=== PATIENT | female | born 1940 | race Caucasian/White ===

== ENCOUNTER → 2016-05-21 | Outpatient (CLI) | payer OTHER | LOC: BHFA 08:30 | PROVIDERS: ATTEND Internal Medicine Cardiovascular Disease | DX: I25.10 Atherosclerotic heart disease of native coronary artery without angina pectoris (principal) | CPT/HCPCS: 78452; 93017; A9500; J2785 ==

== ENCOUNTER → 2016-08-14 | Outpatient (CLI) | payer OTHER | LOC: BHFA 10:45 | PROVIDERS: ATTEND Internal Medicine Cardiovascular Disease | DX: I48.91 Unspecified atrial fibrillation (principal); I25.10 Atherosclerotic heart disease of native coronary artery without angina pectoris ==

== ENCOUNTER → 2016-12-25 | Outpatient (CLI) | payer OTHER | LOC: FIMAGING 08:41 | PROVIDERS: ATTEND Family Medicine | DX: Z03.89 Encounter for observation for other suspected diseases and conditions ruled out (principal) | CPT/HCPCS: G0204 ==

== ENCOUNTER 2017-01-14 19:28 | Emergency (ER) | payer OTHER ==
[2017-01-14 19:40] VITALS: O2SAT 95
--- NOTE | 2017-01-14 20:31 | EDPHY ---
H & P Time Seen by Provider: 01/14/17 20:13 HPI/ROS: CHIEF COMPLAINT: High blood pressure and "feeling weird " HISTORY OF PRESENT ILLNESS: This 76-year-old woman has a history of atrial flutter and is on Xarelto. She presents because this afternoon she started "feeling weird "like she had too much coffee. Initially she said she felt off balance but has not really had any trouble walking, more just "feels jittery. "Like she had "too much coffee. " Patient denies associated headache or confusion or visual trouble. No difficulty with speech and no falling down or vertigo. Patient noticed her blood pressure at home was 168/104, that made her feel more jittery, she presents for evaluation. She is currently taking carvedilol but no other blood pressure medications. REVIEW OF SYSTEMS: Eye: no change in vision ENT: no sore throat Cardiac: no chest pain or syncope Pulmonary: no cough or SOB Abdomen: no vomiting, diarrhea, abdominal pain Musculoskeletal: no back pain or neck pain Skin: no rash Neuro: no headache Constitutional: no fever : no urinary symptoms A comprehensive 10 point review of systems is otherwise negative aside from elements mentioned in the history of present illness. PAST MEDICAL HISTORY: Includes atrial flutter, a hyperlipidemia, thyroid. Pacemaker and coronary stenting. Social history: Here with her General Appearance: Alert and conversant, cooperative. Eyes: No scleral icterus. ENT, Mouth: Normal mucous membranes. Respiratory: Normal respiratory effort, breath sounds equal, lungs are clear to auscultation. Cardiovascular: Regular rate and rhythm. Gastrointestinal: Abdomen is soft and non tender. Neurological: Alert and oriented x3. Normally conversant. Face symmetric, normal movement and sensation in all extremities. She is able to do heel to the toe walking. Negative Romberg. No pronator drift. Normal [id number] bilaterally. Speech is fluent. She does not have truncal ataxia and is not ataxic with her gait. Skin: Warm and dry, no rashes. Musculoskeletal: No peripheral edema and no joint swelling. Normal range of motion of the neck, no meningeal signs. Psychiatric: Not agitated. Emergency Department course/MDM: Patient presents with hypertension but without definite evidence of end-organ damage or hypertensive emergency and history or physical. Plan for noncontrast head CT with her possible neurologic symptoms on Xarelto. EKG, CBC and chemistry. I think it is more likely that she has some other intercurrent illness making her feel a little bit off and that is in turn making her blood pressure go higher. 2125: Negative noncontrast head CT personally interpreted. Reviewed with Sarmad at 2200. Patient is eager to go home. She feels her gait is safe and stable. Normal cerebellar exam here. Will followup with her doctor regarding hypertension this week. Smoking Status: Never smoked Constitutional: Initial Vital Signs Temperature (C) 36.7 C 01/14/17 19:34 Heart Rate 76 01/14/17 19:34 Respiratory Rate 16 01/14/17 19:34 Blood Pressure 170/95 H 01/14/17 19:34 O2 Sat (%) 95 01/14/17 19:34 O2 Delivery Mode Room Air Allergies/Adverse Reactions: celecoxib [From Celebrex] Allergy (Verified 02/02/16 19:58) erythromycin base [From E-Mycin] Allergy (Verified 02/02/16 19:58) Home Medications: Medication Instructions Recorded Cholecalciferol Vit D3 [Vitamin D3 1,000 units PO DAILY@1200 08/31/13 (*)] Herbals/Supplements -Info Only 1 ea PO DAILY 08/31/13 Levothyroxine [Synthroid 75 mcg 75 mcg PO DAILY06 08/31/13 (*)] Lovastatin [Altoprev] 20 mg PO DAILY18 08/31/13 Aspirin [Aspirin 81mg (*)] 81 mg PO DAILY 06/05/15 Carvedilol [Coreg (*)] 3.125 mg PO BIDMEAL #60 tab 06/06/15 Xarelto 01/14/17 Medical Decision Making - Diagnostics EKG Interpretation: 12-lead EKG interpreted by me; official reading is in trace master. My interpretation is atrial fibrillation and ventricular pacing with right axis. Rate 72. Imaging Results: Imaging Impressions Head CT 01/14/17 20:25 Impression: 1. No acute intracranial findings. 2. Diffuse cerebral atrophy, with periventricular and subcortical low attenuation consistent with chronic microvascular ischemic gliosis. Findings discussed with Bakari Garcia M.D., on January 14, 2017 at 2157. Differential Diagnosis: Differential considered including but not limited to hypertensive emergency, intracranial mass or bleed, ischemic or hemorrhagic stroke, metabolic abnormality, pacemaker malfunction. - Data Points Laboratory Results: Laboratory Results 01/14/17 20:33 01/14/17 20:33 01/14/17 01/14/17 20:33 20:33 WBC 5.10 10^3/uL 10^3/uL (3.80-9.50) RBC 4.94 10^6/uL 10^6/uL (4.18-5.33) Hgb 15.4 g/dL g/dL (12.6-16.3) Hct 44.9 % % (38.0-47.0) MCV 90.9 fL fL (81.5-99.8) MCH 31.2 pg pg (27.9-34.1) MCHC 34.3 g/dL g/dL (32.4-36.7) RDW 13.0 % % (11.5-15.2) Plt Count 222 10^3/uL 10^3/uL (150-400) MPV 9.3 fL fL (8.7-11.7) Neut % (Auto) 52.5 % % (39.3-74.2) Lymph % (Auto) 34.3 % % (15.0-45.0) [place] % (Auto) 10.0 % % (4.5-13.0) Eos % (Auto) 2.4 % % (0.6-7.6) Baso % (Auto) 0.6 % % (0.3-1.7) Nucleat RBC Rel Count 0.0 % % (0.0-0.2) Absolute Neuts (auto) 2.68 10^3/uL 10^3/uL (1.70-6.50) Absolute Lymphs (auto) 1.75 10^3/uL 10^3/uL (1.00-3.00) Absolute Monos (auto) 0.51 10^3/uL 10^3/uL (0.30-0.80) Absolute Eos (auto) 0.12 10^3/uL 10^3/uL (0.03-0.40) Absolute Basos (auto) 0.03 10^3/uL 10^3/uL (0.02-0.10) Absolute Nucleated RBC 0.00 10^3/uL 10^3/uL (0-0.01) Immature Gran % 0.2 % % (0.0-1.1) Immature Gran # 0.01 10^3/uL 10^3/uL (0.00-0.10) Sodium 143 mEq/L mEq/L (134-144) Potassium 3.8 mEq/L mEq/L (3.5-5.2) Chloride 106 mEq/L mEq/L (97-110) Carbon Dioxide 25 mEq/l mEq/l (22-31) Anion Gap 12 mEq/L mEq/L (8-16) BUN 14 mg/dL mg/dL (7-23) Creatinine 0.8 mg/dL mg/dL (0.6-1.0) Estimated GFR > 60 Glucose 103 mg/dL H mg/dL (70-100) Calcium 10.0 mg/dL mg/dL (8.5-10.4) Departure - Departure Disposition: Home, Routine, Self-Care Clinical Impression: Hypertension Condition: Good Instructions: Hypertension (ED) Referrals: Jose Junior DO [Primary Care Provider] - As per Instructions
[2017-01-14 20:38] LABS: % IMMATURE GRANULYOCYTES 0.2 % (0.0-1.1); ABSOLUTE IMMATURE GRANULOCYTES 0.01 10^3/uL (0.00-0.10); ADD DIFF? NO; ADD MORPH? NO; ADD SCAN? NO; ATYPICAL LYMPHOCYTE FLAG 10 (0-99); FRAGMENT RBC FLAG 0 (0-99); HEMATOCRIT 44.9 % (38.0-47.0); HEMOGLOBIN 15.4 g/dL (12.6-16.3); LEFT SHIFT FLG 0 (0-99); LIPEMIA HEMOLYSIS FLAG 90 (0-99); MEAN CELL HEMOGLOBIN 31.2 pg (27.9-34.1); MEAN CELL HEMOGLOBIN CONCENTR. 34.3 g/dL (32.4-36.7); MEAN CELL VOLUME 90.9 fL (81.5-99.8); MEAN PLATELET VOLUME 9.3 fL (8.7-11.7); PLATELET CLUMPS FLAG 0 (0-99); PLATELET COUNT 222 10^3/uL (150-400); RED BLOOD CELL COUNT 4.94 10^6/uL (4.18-5.33)
--- NOTE | 2017-01-14 20:42 | CPEKG ---
Heart Rate: 72 RR Interval: 833 QRSD Interval: 98 QT Interval: 436 QTC Interval: 478 QRS [place]: 193 T Wave [place]: 69 EKG Severity - ABNORMAL ECG - EKG Impression: AFIB/FLUT AND V-PACED COMPLEXES EKG Impression: RIGHT AXIS DEVIATION EKG Impression: NONSPECIFIC T ABNORMALITIES, ANT-LAT LEADS EKG Impression: BORDERLINE PROLONGED QT INTERVAL Electronically Signed By: Bakari Garcia 14-Jan-2017 20:45:21
[2017-01-14 21:09] LABS: ANION GAP 12 mEq/L (8-16); CARBON DIOXIDE 25 mEq/l (22-31); CHLORIDE 106 mEq/L (97-110); CREATININE 0.8 mg/dL (0.6-1.0); GLOMERULAR FILTRATION RATE > 60; GLUCOSE 103 mg/dL (70-100); POTASSIUM 3.8 mEq/L (3.5-5.2); SODIUM 143 mEq/L (134-144)
[2017-01-14 22:07] VITALS: BP 153/105; PULSE 70; RESP 16
[2017-01-14 22:08] VITALS: TEMP 96.8
== END 2017-01-14 22:21 | disposition home or self-care (01) ==
DX: I10 Essential (primary) hypertension (principal); Z79.01 Long term (current) use of anticoagulants; Z95.0 Presence of cardiac pacemaker; Z95.5 Presence of coronary angioplasty implant and graft; Z79.82 Long term (current) use of aspirin

== ENCOUNTER 2017-06-18 08:30 | Day surgery (SDC) | payer OTHER ==
[2017-06-18] MEDS ORDERED: NS 1,000 ML IV ONE (08:35)
[2017-06-18] MEDS ORDERED: DIAZEPAM 5 MG TAB PO ONE (08:35)
[2017-06-18] MEDS ORDERED: FAMOTIDINE 20 MG TAB PO ONE (08:35)
[2017-06-18] MEDS ORDERED: diphenhydrAMINE 25 MG CAP PO ONE ×2 (08:35→08:57)
[2017-06-18] MEDS ORDERED: ASPIRIN EC 325 MG TAB PO ONE ×2 (08:35→08:57)
--- NOTE | 2017-06-18 08:52 | CPEKG ---
Heart Rate: 61 RR Interval: 984 QRSD Interval: 162 QT Interval: 468 QTC Interval: 472 QRS [place]: 173 T Wave [place]: -21 EKG Severity - ABNORMAL ECG - EKG Impression: AFIB/FLUT AND V-PACED COMPLEXES EKG Impression: SIMILAR ECG TO DEC 2016 Electronically Signed By: Lior Gutierrez 18-Jun-2017 11:35:07
[2017-06-18] MEDS ORDERED: DIAZEPAM 5 MG TAB ONE (08:57)
[2017-06-18] MEDS ORDERED: FAMOTIDINE 20 MG TAB ONE (08:57)
[2017-06-18 09:12] LABS: PLATELET COUNT 219 10^3/uL (150-400)
[2017-06-18 09:20] LABS: PROTIME(PATIENT) 13.4 SEC (12.0-15.0)
[2017-06-18] MEDS ORDERED: fentaNYL 100 MCG/2 ML INJ ONE (09:37)
[2017-06-18] MEDS ORDERED: LIDOCAINE 1% 300 MG/30 ML SDV ONE (09:37)
[2017-06-18] MEDS ORDERED: MIDAZOLAM 2 MG/2 ML VIAL ONE (09:37)
[2017-06-18] MEDS ORDERED: IOPAMIDOL (ISOVUE-370) 150 ML BTL IV ONE (09:38)
[2017-06-18] MEDS ORDERED: HEPARIN 10,000 UNIT/10 ML MDV (1,000 UNIT/ML) ONE (09:38)
[2017-06-18] MEDS ORDERED: VERAPAMIL 5 MG/2 ML VIAL ONE (09:38)
--- NOTE | 2017-06-18 09:42 | PDHPUP ---
History & Physical Update H&P update statement: This history and physical update is based on an assessment of the patient which was completed after admission or registration (within 24 hours), but prior to the surgery/procedure. H&P update: H&P reviewed & patient examined, no change in patient's condition since H&P completed
--- NOTE | 2017-06-18 09:42 | PDPROPOC ---
Sedation Plan of Care Sedation Plan of Care: vital signs stable, mental status noted, patient educated of risks, benefits, alternatives, patient can tolerate sedation ASA Classification: ASA 2 Planned drugs: fentanyl, midazolam Mallampati Score: Class 1 Mallampati Reference Image: Patient passed 3-3-2 rule?: Yes
[2017-06-18] MEDS ORDERED: NITROGLYCERIN 0.4 MG BTL SL PRN (10:35)
[2017-06-18] MEDS ORDERED: ATROPINE SULFATE 1 MG/10 ML SYR IVP PRN (10:35)
[2017-06-18] MEDS ORDERED: ONDANSETRON 4 MG/2 ML VIAL IVP PRN (10:35)
--- NOTE | 2017-06-18 10:39 | PDDXCAT ---
Diagnostic Cath Note - . Date: 06/18/17 Tissue Specialist: Tez Indication: Class I/II angina, intolerance to med therapy or failure to respond - Procedure Access: right groin Procedure: left heart catheterization, coronary angiography - Materials Left Heart Cath size: 6F Left Heart Cath materials: standard multipack (JL4, JR4, pigtail) - Findings-Left Heart Catheterization LM: Unobstructed LAD: Stent widely patent. No new obstruction LCX: Unobstructed RCA: Anterior takeoff: Unobstructed EDP: 5 mm of mercury LVEF: 60% Wall motion: Normal. Dilated ascending aorta Complications: None Estimated blood loss: <50ml Closure method: manual pressure Assessment: Widely patent site of prior stenting. No new focal stenosis. Preserved LV systolic function with normal filling pressures. Thoracic aortic aneurysm. Plan: Continue aggressive secondary prevention. Patient Problems: Problems Problem Status Onset Atrial fibrillation Acute Sick sinus syndrome Acute Pacemaker Acute Chest pain Acute
== END 2017-06-18 16:45 | disposition home or self-care (01) ==
LOC: FCATH 08:30
PROVIDERS: ATTEND Internal Medicine Interventional Cardiology
PROC: B2111ZZ Fluoroscopy of Multiple Coronary Arteries using Low Osmolar Contrast (ICD-10-PCS; principal; 2017-06-18)
PROC: B2151ZZ Fluoroscopy of Left Heart using Low Osmolar Contrast (ICD-10-PCS; principal; 2017-06-18)
PROC: 4A023N7 Measurement of Cardiac Sampling and Pressure, Left Heart, Percutaneous Approach (ICD-10-PCS; principal; 2017-06-18)
DX: R07.9 Chest pain, unspecified (principal); R06.02 Shortness of breath; I25.10 Atherosclerotic heart disease of native coronary artery without angina pectoris; Z95.5 Presence of coronary angioplasty implant and graft; I71.2 Thoracic aortic aneurysm, without rupture; I10 Essential (primary) hypertension; E78.5 Hyperlipidemia, unspecified; I48.91 Unspecified atrial fibrillation; Z95.0 Presence of cardiac pacemaker
CPT/HCPCS: J1644; J2250; J3010; Q9967

== ENCOUNTER 2017-08-11 09:17 | Emergency (ER) | payer OTHER ==
--- NOTE | 2017-08-11 09:24 | EDPHY ---
H & P Source: Patient Exam Limitations: No limitations - Personal History Tetanus Vaccine Date: within 2 yrs - Medical/Surgical History Hx Asthma: No Hx Chronic Respiratory Disease: No Hx Diabetes: No Hx Cardiac Disease: Yes Hx Renal Disease: No Hx Cirrhosis: No Hx Alcoholism: No Hx HIV/AIDS: No Hx Splenectomy or Spleen Trauma: No Other PMH: PMHx: Atrial flutter, SSS, bradycardia, hyperlipidemia, hypothyroidism, pneumonia. PSHx: T&A at 3yrs of age, bunionectomy, cardiac stent, pacemaker - Social History Smoking Status: Never smoked Time Seen by Provider: 08/11/17 09:23 HPI/ROS: HPI: This is a 76-year-old female who presents with Chief Complaint: Nosebleed Location: right nostril Quality: bleeding Duration: 1 hour prior to arrival Signs and Symptoms: no fever, no nausea, no vomiting, no photophobia, no noise sensitivity, no neck stiffness, no ear pain, no tinnitus, + nasal congestion, + sinus pressure, no weakness, no radiation, no aura Timing:acute Severity: moderate Context: Patient presents with complaints of bleeding from her right nostril. She reports that she has had a cold and was blowing her nose this morning when the bleeding started. Takes Aspirin and Xarelto. Two weeks ago she had a nosebleed that stopped after 2 hr with direct pressure. Modifying Factors: Nose clamp applied at 9:17 a.m. By the triage nurse. Comment: ROS: see HPI Constitutional: No fever, no chills, no weight loss Eyes: No blurred vision Respiratory: No shortness of breath, no cough Cardiovascular: No chest pain, no palpitations Gastrointestinal: No nausea, no vomiting, no diarrhea, no hematemesis, no blood in stool Genitourinary: No dysuria, no blood in urine Extremities: No myalgias, no edema Neurologic: No weakness, no numbness Skin: No rashes, no petechiae Hematologic: No bruising, no bleeding MEDICAL/SURGICAL/SOCIAL HISTORY: PMHx: Atrial flutter, SSS, bradycardia, hyperlipidemia, hypothyroidism, pneumonia PSHx: T&A at 3yrs of age, bunionectomy, cardiac stent, pacemaker Social history: Family history noncontributory. CONSTITUTIONAL: Extremely pleasant elderly white female, awake and alert, no obvious distress HEENT: Atraumatic and normocephalic, PERRL, EOMI. Nares patent; + large clots and bleeding coming from right anterior nose and blood running down the posterior pharynx. Tympanic membranes clear. Oropharynx clear, no exudate and moist pink mucosa. Airway patent. No lymphadenopathy. No meningismus. Cardiovascular: Normal S1/S2, regular rate, regular rhythm, without murmur rub or gallop. PULMONARY/CHEST: Symmetrical and nontender. Clear to auscultation bilaterally. Good air movement. No accessory muscle usage. ABDOMEN: Soft, nondistended, nontender, no rebound, no guarding, no peritoneal signs, no masses or organomegaly. No CVAT. EXTREMITIES: 2/2 pulses, strength 5/5, no deformities, no clubbing, no cyanosis or edema. NEUROLOGICAL: no focal neuro deficits. GCS 15. SKIN: Warm and dry, no erythema. no rash. Good capillary refill. (Megan Hamilton) Constitutional: Initial Vital Signs Heart Rate 82 08/11/17 09:20 Respiratory Rate 18 08/11/17 09:20 Blood Pressure 158/104 H 08/11/17 09:20 O2 Sat (%) 98 08/11/17 09:20 O2 Delivery Mode Room Air Allergies/Adverse Reactions: celecoxib [From Celebrex] Allergy (Intermediate, Verified 08/11/17 09:23) Hives erythromycin base [From E-Mycin] Allergy (Mild, Verified 08/11/17 09:23) GI UPSET Home Medications: Medication Instructions Recorded Cholecalciferol Vit D3 [Vitamin D3 3,000 units PO DAILY 08/31/13 (*)] Herbals/Supplements -Info Only 1 ea PO DAILY 08/31/13 Levothyroxine [Synthroid 75 mcg 75 mcg PO DAILY06 08/31/13 (*)] Aspirin [Aspirin 81mg (*)] 81 mg PO DAILY 06/05/15 Rivaroxaban [Xarelto 10mg (*)] 20 mg PO DAILY 01/14/17 Carvedilol [Coreg (*)] 3.125 mg PO BIDMEAL 06/11/17 Diltiazem HCl [Cartia Xt] 120 mg PO DAILY 06/11/17 Lovastatin 20 mg PO DAILY 06/11/17 Hydrochlorothiazide [HCTZ (*)] 12.5 mg PO 08/11/17 Medical Decision Making Procedures: Procedure: Epistaxis control. After verbal consent was obtained, the patient was not anesthetized. The anterior epistaxis was identified. The patient was treated with TXA soaked nasal packing. Following the procedure the patient was re-examined and the bleeding was well controlled. The patient tolerated the procedure well. The procedure was performed by myself. (Megan Hamilton) ED Course/Re-evaluation: Vital signs reviewed upon arrival. BP 158/104 Patient politely declined laboratory studies she does not believe it to be necessary Nasal packing with TXA used with good hemostasis 1015: Reassessed patient. She had pulled the nasal packing out approximately 3 she reports by accident. Nasal packing with TXA replaced. Patient again pulled approximately 1 inch the packing out. Drinking liquids and ambulating without bleeding reoccurrence. Monitored in the emergency room for 3 hr without return of bleeding. This patient was seen under the supervision of my secondary supervising physician. I evaluated care for this patient independently. Discussed this patient with Dr. Bustamante who did see the patient. (Megan Hamilton) Differential Diagnosis: Differential diagnosis includes but is not limited to digital trauma, dry nasal mucosa, sinusitis, coagulopathy. (Megan Hamilton) Other Provider: 1030: Reassessed patient. She has no active bleeding after TXA nasal packing treatment. Will continue to reassess. (Herminio Bustamante) - Data Points Medications Given: Discontinued Medications Tranexamic Acid (Cyklokapron) 500 mg TP EDNOW ONE Stop: 08/11/17 09:27 Last Admin: 08/11/17 09:35 Dose: Not Given Departure - Departure Disposition: Home, Routine, Self-Care Clinical Impression: Acute anterior epistaxis, Chronic anticoagulation Condition: Good Instructions: Nosebleed (ED), Blood Thinners (ED) Additional Instructions: Please avoid blowing your nose x 1 week. Do not pick your nose x 1 week. Use nasal saline drops or Vaseline as needed for nasal dryness. If Bleeding recurs, apply direct pressure or use nasal clamp. If bleeding does not stop after 1 hour, return to the emergency room for further care. Call ENT on Saturday for follow up on Saturday or Saturday to have nasal packing removed. Follow-Up: Please follow-up as noted above. Follow-up sooner if your condition worsens or if you develop any new problems. Call as soon as possible for an appointment. Be clear when you call for an appointment that this is an Emergency Department follow-up. Contact the Emergency Department if you have trouble arranging follow-up care. Our referrals are not based on your insurance network. When time allows, contact your insurance carrier to verify the referral physician is in your plan. If not, get a referral for an in-network associate. Referrals: Jose Junior DO [Primary Care Provider] - As per Instructions Jordin Ruiz MD [Medical Doctor] - As per Instructions
[2017-08-11] MEDS ORDERED: TRANEXAMIC ACID 1,000 MG/10 ML VIAL TP ONE (09:26)
[2017-08-11] MEDS ORDERED: TRANEXAMIC ACID 1,000 MG/10 ML VIAL ONE (09:27)
[2017-08-11 11:03] VITALS: BP 165/100
== END 2017-08-11 11:02 | disposition home or self-care (01) ==
PROC: 2Y41X5Z Packing of Nasal Region using Packing Material (ICD-10-PCS; principal; 2017-08-11)
DX: R04.0 Epistaxis (principal); Z79.01 Long term (current) use of anticoagulants; Z79.82 Long term (current) use of aspirin; Z95.0 Presence of cardiac pacemaker

== ENCOUNTER 2017-08-11 17:48 | Emergency (ER) | payer OTHER ==
--- NOTE | 2017-08-11 18:22 | EDPHY ---
H & P Smoking Status: Never smoked Time Seen by Provider: 08/11/17 17:55 HPI/ROS: CHIEF COMPLAINT: Epistaxis HISTORY OF PRESENT ILLNESS: 76-year-old female presents to the emergency department with ongoing epistaxis. She was seen in the emergency department earlier today and had nasal packing placed. She continues to bleed around the packing and presents to the emergency department for ongoing bleeding. She states this initially started over 1 week ago. She denies pain in her chest or difficulty breathing. The patient is concerned that she has a sinus infection. She states for last 2 weeks she has had purulent drainage from her nose with facial pressure specially on the right side. She states then she developed the epistaxis over 1 week ago and sort of forgot about her sinus symptoms. She has been treated with antibiotics in the past for sinusitis. She denies cough. Patient has a history of pacemaker and she is on Xarelto. REVIEW OF SYSTEMS: Constitutional: No fever, no chills. Eyes: No double or blurry vision. ENT: Epistaxis. Nasal congestion, rhinorrhea. No sore throat. Respiratory: No cough, no shortness of breath. Cardiac: No chest pain. Gastrointestinal: No abdominal pain, vomiting or diarrhea. Genitourinary: No dysuria. Musculoskeletal: No neck or back pain. Skin: No rashes. Neurological: No headache. (Shannan Mitchell) Past Medical/Surgical History: Pacemaker on Xarelto, atrial flutter, cardiac stent, sick sinus syndrome, bradycardia, hyperlipidemia, hypothyroidism, pneumonia (Shannan Mitchell) Social History: (Shannan Mitchell) Physical Exam: General Appearance: Alert, no distress. 185/99 Eyes: Pupils equal and round. Extraocular motions are all intact. ENT: Mouth: Mucous membranes moist. The patient has Merocel packing noted in her right nostril. There is bleeding noted around the packing. There is no postnasal drip or blood in the posterior pharynx. No bleeding from the left nostril. Respiratory: No wheezing, rhonchi, or rales, lungs are clear to auscultation. Cardiovascular: Regular rate and rhythm. Gastrointestinal: Abdomen is soft and nontender, no masses, no rebound or guarding, bowel sounds normal. Neurological: Alert and oriented x 3, cranial nerves II through XII grossly intact Skin: Warm and dry, no rashes. Musculoskeletal: Nontender to palpate along the cervical, thoracic or lumbar spine. Neck is supple. Extremities: Full range of motion and no peripheral edema. Psychiatric: Patient is oriented X 3, there is no agitation. (Shannan Mitchell) Constitutional: Initial Vital Signs Heart Rate 75 08/11/17 17:50 Respiratory Rate 18 08/11/17 17:50 Blood Pressure 185/99 H 08/11/17 17:50 O2 Sat (%) 96 08/11/17 17:50 O2 Delivery Mode Room Air Allergies/Adverse Reactions: celecoxib [From Celebrex] Allergy (Intermediate, Verified 08/11/17 09:23) Hives erythromycin base [From E-Mycin] Allergy (Mild, Verified 08/11/17 09:23) GI UPSET Home Medications: Medication Instructions Recorded Cholecalciferol Vit D3 [Vitamin D3 3,000 units PO DAILY 08/31/13 (*)] Herbals/Supplements -Info Only 1 ea PO DAILY 08/31/13 Levothyroxine [Synthroid 75 mcg 75 mcg PO DAILY06 08/31/13 (*)] Aspirin [Aspirin 81mg (*)] 81 mg PO DAILY 06/05/15 Rivaroxaban [Xarelto 10mg (*)] 20 mg PO DAILY 01/14/17 Carvedilol [Coreg (*)] 3.125 mg PO BIDMEAL 06/11/17 Diltiazem HCl [Cartia Xt] 120 mg PO DAILY 06/11/17 Lovastatin 20 mg PO DAILY 06/11/17 Amoxicillin/Clavulanate Pot 875 mg PO BID #20 tab 08/11/17 [Augmentin 875 mg tab] Hydrochlorothiazide [HCTZ (*)] 12.5 mg PO 08/11/17 Medical Decision Making ED Course/Re-evaluation: 76-year-old female presents to the emergency department with ongoing epistaxis. The patient is on Xarelto. She is bleeding around the Merocel packing that was placed earlier in the emergency department. Patient's vital signs are stable. The Merocel packing was removed and the patient was able to remove a large clot from her right nose. She had continued ongoing epistaxis. Unable to visualize where bleeding was coming from. There was no bleeding noted in the posterior pharynx. Small amount of 1% lidocaine with epinephrine was placed on a cotton ball in her right nostril. Still unable to visualize active site of bleeding. Patient had a rhino rocket placed. She tolerated this well. No bleeding noted around the rhino rocket currently. No bleeding from the left nostril. No blood in the posterior pharynx. Patient is comfortable being discharged home will follow up with ENT. The patient believes that she has had sinusitis for last 2 weeks. She has a history of sinusitis. The patient will have a rhino rocket left in place in the right nostril for her epistaxis. She was started on Augmentin. She was given ENT referral. (Shannan Mitchell) Differential Diagnosis: Including but not limited to sinusitis, epistaxis, anemia, retained foreign body , hypertensive emergency, hypertensive urgency. (Shannan Mitchell) - Data Points Medications Given: Discontinued Medications Amoxicillin/Clavulanate Potassium (Augmentin 875mg) 875 mg PO EDNOW ONE PRN Reason: Protocol Stop: 08/11/17 18:54 Last Admin: 08/11/17 18:58 Dose: 875 mg Departure - Departure Disposition: Home, Routine, Self-Care Clinical Impression: Epistaxis Sinusitis Qualifiers: Sinusitis location: unspecified location Chronicity: acute Recurrence: non- recurrent Qualified Code(s): J01.90 - Acute sinusitis, unspecified Condition: Good Instructions: Amoxicillin/Clavulanate Potassium (By mouth), Sinusitis (ED), Nosebleed (ED) Additional Instructions: Call to arrange follow-up appointment with Dr. Jordin Ruiz, ENT on-call, this week. Tell them that you were seen in the emergency department twice and you have an anterior-posterior 7.5 cm rhino rocket in her right nostril. Augmentin 875 mg twice daily for 10 days for treatment of your sinusitis. Nasal lubricant as discussed in the left nostril. Return to the emergency department if you developed recurring epistaxis, difficulty breathing, difficulty swallowing, or if you feel worse in any way. Please do not touch the packing that is in your right nostril. Leave this in place until you follow up with the Ear Nose and Throat doctor. Referrals: Jose Junior DO [Primary Care Provider] - As per Instructions Jordin Ruiz MD [Medical Doctor] - 1-2 days without fail (ENT on-call) Prescriptions: Amoxicillin/Clavulanate Pot [Augmentin 875 mg tab] 875 mg PO BID #20 tab
[2017-08-11] MEDS ORDERED: AMOXICILLIN/CLAVULANATE POT 875/125 MG TAB PO ONE (18:53)
[2017-08-11 19:03] VITALS: BP 171/110
== END 2017-08-11 19:01 | disposition home or self-care (01) ==
PROC: 2Y41X5Z Packing of Nasal Region using Packing Material (ICD-10-PCS; principal; 2017-08-11)
DX: R04.0 Epistaxis (principal); J01.90 Acute sinusitis, unspecified; Z79.01 Long term (current) use of anticoagulants; Z79.82 Long term (current) use of aspirin; Z95.0 Presence of cardiac pacemaker

== ENCOUNTER → 2018-01-13 | Outpatient (CLI) | payer OTHER | LOC: BHFA 09:15 | PROVIDERS: ATTEND Nurse Practitioner Adult Health | DX: I25.10 Atherosclerotic heart disease of native coronary artery without angina pectoris (principal); I48.91 Unspecified atrial fibrillation; I71.9 Aortic aneurysm of unspecified site, without rupture; E78.5 Hyperlipidemia, unspecified ==

== ENCOUNTER 2018-07-18 03:26 | Emergency (ER) | payer OTHER ==
[2018-07-18] MEDS ORDERED: HYDROCHLOROTHIAZIDE 25 MG TAB PO ONE (04:52)
[2018-07-18 05:26] LABS: PLATELET COUNT 221 10^3/uL (150-400)
--- NOTE | 2018-07-18 06:36 | EDPHY ---
H & P Stated Complaint: shaky, high BP Time Seen by Provider: 07/18/18 04:33 HPI/ROS: HPI The patient presents with shakiness which she has been experiencing for the last 1 day. Yesterday she felt more tired than usual and did not sleep well. Today she developed to shaky sensation throughout her body. She went to bed, however awoke at 2:00 a.m. And continued to feel shaky. She has been able to walk without any difficulty and denies any dizziness. At about 2:30 a.m. She checked her blood pressure and it was 193/1 0 weight. She repeated this and had similar numbers on 3 attempts. She called the on-call director Dr. Arora and he instructed her to come to the emergency department. She is not having any chest pain, vomiting, abdominal pain, shortness of breath. She was recently switched to Eliquis from Xarelto about 1 month ago and has begun taking amiodarone. She had a similar presentation about 2 years ago with an unremarkable workup. She has been taking her antihypertensives. She has HCTZ which is written for on a p.r.n. Basis, however did not take it tonight. REVIEW OF SYSTEMS 10 systems were reviewed and negative with the exception of the elements mentioned in the history of present illness. PMHx: Atrial fibrillation, pacer in place, hypertension Soc Hx: Lives at home with her PHYSICAL General Appearance: Alert, no distress Eyes: Pupils equal and round no pallor or injection ENT, Mouth: Mucous membranes moist Respiratory: There are no retractions, lungs are clear to auscultation Cardiovascular: Regular rate and rhythm Gastrointestinal: Abdomen is soft and non-tender, no masses, bowel sounds normal Neurological: A&O, cranial nerves 2-12 intact, 5/5 strength in upper and lower extremities which is symmetric, normal finger to nose testing, normal tandem gait, no nystagmus Skin: Warm and dry, no rashes Musculoskeletal: Neck is supple non tender Extremities: symmetrical, full range of motion Psychiatric: Patient is oriented X 3, there is no agitation Source: Patient Exam Limitations: No limitations - Personal History Current Tetanus/Diphtheria Vaccine: Yes Tetanus Vaccine Date: within 2 yrs - Medical/Surgical History Hx Asthma: No Hx Chronic Respiratory Disease: No Hx Diabetes: No Hx Cardiac Disease: Yes Hx Renal Disease: No Hx Cirrhosis: No Hx Alcoholism: No Hx HIV/AIDS: No Hx Splenectomy or Spleen Trauma: No Other PMH: PMHx: Atrial flutter, SSS, bradycardia, hyperlipidemia, hypothyroidism, pneumonia. PSHx: T&A at 3yrs of age, bunionectomy, cardiac stent, pacemaker - Social History Smoking Status: Never smoked Constitutional: Initial Vital Signs Temperature (C) 36.6 C 07/18/18 03:27 Heart Rate 81 07/18/18 03:27 Respiratory Rate 20 07/18/18 03:27 Blood Pressure 194/113 H 07/18/18 03:27 O2 Sat (%) 94 07/18/18 03:27 O2 Delivery Mode Room Air Allergies/Adverse Reactions: celecoxib [From Celebrex] Allergy (Intermediate, Verified 07/18/18 03:30) Hives erythromycin base [From E-Mycin] Allergy (Mild, Verified 07/18/18 03:30) GI UPSET Home Medications: Medication Instructions Recorded Cholecalciferol Vit D3 [Vitamin D3 3,000 units PO DAILY 08/31/13 (*)] Herbals/Supplements -Info Only 1 ea PO DAILY 08/31/13 Levothyroxine [Synthroid 75 mcg 75 mcg PO DAILY06 08/31/13 (*)] Aspirin [Aspirin 81mg (*)] 81 mg PO DAILY 06/05/15 Carvedilol [Coreg (*)] 3.125 mg PO BIDMEAL 06/11/17 Hydrochlorothiazide [HCTZ (*)] 12.5 mg PO 08/11/17 Coreg 07/18/18 Eliquis 07/18/18 Medical Decision Making - Diagnostics EKG Interpretation: EKG: Complete interpretation has been separately recorded in the [email or web address] archive. Summary impression: Paced rhythm Imaging Results: CT head without contrast demonstrates no acute abnormality, interpreted by direct Radiology. Imaging: I viewed and interpreted images myself Differential Diagnosis: This is a 77-year-old female with hypertension, AFib on anticoagulation, pacemaker in place who presents from home with elevated blood pressure tonight as high as 190s systolic. This is associated with a sensation of shakiness which she feels throughout her body though is nonfocal. Here, blood pressure is elevated though not quite as high as before. Her neurologic exam is unremarkable. She does not have any chest pain, abdominal pain, shortness of breath. The patient underwent CT scan of her head to evaluate for CVA. This was unremarkable and my suspicion is low. Other testing including creatinine and UA were normal as well. She was given a dose of HCTZ which she has as a p.r.n. Medication at home, however did not take tonight. This resulted in a normal blood pressure. Her symptoms improved somewhat. She was able to walk without any difficulty. The cause of her shakiness is unclear though I think her symptoms are quite mild at this time. I have advised her to follow up with her director in a few days which has already been scheduled. We discussed return precautions. She is happy with this plan. - Data Points Laboratory Results: Laboratory Results 07/18/18 05:14 07/18/18 05:14 Medications Given: Discontinued Medications Hydrochlorothiazide (Hydrochlorothiazide) 12.5 mg PO EDNOW ONE Stop: 07/18/18 04:53 Last Admin: 07/18/18 05:08 Dose: 12.5 mg Departure - Departure Disposition: Home, Routine, Self-Care Clinical Impression: Shaky HTN (hypertension) Qualifiers: Hypertension type: essential hypertension Qualified Code(s): I10 - Essential ( primary) hypertension Condition: Good Instructions: Chronic Hypertension (ED) Additional Instructions: Please return to the emergency department if your worse in any way. Referrals: Jose Junior DO [Primary Care Provider] - As per Instructions Lawson Arora MD [Medical Doctor] - As per Instructions
[2018-07-18 06:48] VITALS: BP 144/90
== END 2018-07-18 06:48 | disposition home or self-care (01) ==
DX: R25.1 Tremor, unspecified (principal); I10 Essential (primary) hypertension; I48.91 Unspecified atrial fibrillation; Z79.01 Long term (current) use of anticoagulants; Z95.0 Presence of cardiac pacemaker

== ENCOUNTER → 2018-07-22 | Outpatient (CLI) | payer OTHER | LOC: FIMAGING 10:20 | PROVIDERS: ATTEND Internal Medicine Cardiovascular Disease | DX: I48.91 Unspecified atrial fibrillation (principal); Z79.899 Other long term (current) drug therapy; R93.1 Abnormal findings on diagnostic imaging of heart and coronary circulation ==